=== PATIENT | female | born 1940 | race Caucasian/White ===

== ENCOUNTER 2023-10-15 00:16 | Day surgery (SDC) | payer MEDICARE, SELFPAY ==
[2023-10-03 15:05] VITALS: BMI 20.7
--- NOTE | 2023-10-03 15:48 | PC.NURSE ---
Spoke with _POA-DAUGHTER PAVITHRA__ regarding medication _ELIQUIS__. Pt. verbalizes understanding that the last dose of ELIQUIS_ is to be taken on _10/12/2023___ and the Endoscopist will instruct them when to restart after the procedure.
[2023-10-15 12:38] VITALS: BP 137/41; PULSE 56; RESP 18; TEMP 36.1; O2SAT 98; BMI 20.7
[2023-10-15] MEDS: LACTATED RINGERS 1,000 ML 150 ML IV CONT (12:42)
--- NOTE | 2023-10-15 12:57 | WPDANESEPPF ---
Anes - Initial Pre Proc Eval Procedure: Operation Date: 10/15/23 13:30 Proposed Procedures p Esophagogastroduodenoscopy - Pablo Aguillon MD Date/Time: 10/15/23 12:57 Surgeon: Pablo Aguillon MD Pre Op Diagnosis: dysphagia unspecified Patient Data Age: 83 Gender: F Height: 1.6 m Weight: 53.2 kg Last Vital Signs Temp 97.0 F L 10/15/23 12:38 Pulse 56 L 10/15/23 12:38 Resp 18 10/15/23 12:38 BP 137/41 L 10/15/23 12:38 Pulse Ox 98 10/15/23 12:38 O2 Del Method Room Air 10/15/23 12:38 Allergies Allergy/AdvReac Type Severity Reaction Status Date / Time Sulfa (Sulfonamide Allergy Severe Difficulty Verified 10/15/23 12:34 Antibiotics) Breathing latex Allergy Intermediate Itching Verified 10/15/23 12:34 Penicillins Allergy Unknown Unknown Verified 10/15/23 12:34 Home Medications Medication Instructions Recorded Confirmed Type Centrum Silver Ultra Women's 1 gummy PO DAILY 10/03/23 10/15/23 History alendronate 70 mg tablet 70 mg PO WEEKLY 10/03/23 10/15/23 History apixaban 5 mg tablet (Eliquis) 5 mg PO BID 10/03/23 10/03/23 History calcium carbonate 600 mg-vitamin 1 tablet PO BID 10/03/23 10/15/23 History D3 20 mcg (800 unit) chewable tablet (Caltrate 600 plus D) cyclosporine 0.05 % eye drops in a 1 drp EACH EYE Q12H 10/03/23 10/15/23 History dropperette (Restasis) escitalopram oxalate 5 mg tablet 5 mg PO DAILY 10/03/23 10/15/23 History fluticasone propionate 50 2 spray intranasal DAILY 10/03/23 10/15/23 History mcg/actuation nasal spray,suspension lorazepam 0.5 mg tablet 0.5 mg PO TID PRN Anxiety 10/03/23 10/15/23 History losartan 50 mg-hydrochlorothiazide 1 tablet PO DAILY 10/03/23 10/15/23 History 12.5 mg tablet mecobalamin (vitamin B12) 1,000 1,000 mcg sublingual DAILY 10/03/23 10/15/23 History mcg disintegrating tablet,sublingual metoprolol tartrate 25 mg tablet 25 mg PO DAILY 10/03/23 10/15/23 History ranolazine 500 mg tablet,extended 500 mg PO BID 10/03/23 10/15/23 History release,12 hr rosuvastatin 20 mg tablet 20 mg PO DAILY 10/03/23 10/15/23 History Patient hx anesthesia problems: none Family hx anesthesia problems: none Results Review: All pre-operative results and documents have been reviewed as part of the pre-operative evaluation. [facility] Social History Social History Smoking packs per day: 2 Smoking cigarettes per day: 40.0 Years smoked: 40 Smoking pack-years: 80.00 Smoking status: Former smoker Tobacco type: cigarettes Alcohol intake: current Substance use: never Substance use type: does not use Living arrangements: with family Spiritual care concerns: No Anes - Eval Final PreProcedure Day of Procedure 10/15/23 12:57 Patient weight: normal Heart: regular rate and rhythm Lungs: clear to auscultation Airway: Mallampati scale class II Neurological: alert and oriented Last oral intake: >/= 8 hours ASA classification: III Emergent: no Anesthetic plan: proceed Anesthesia type and monitoring: general GIVS and standard monitoring Results Review: All pre-operative results and documents have been reviewed as part of the pre-operative evaluation. Informed Consent: The patient's anesthetic plan and its attendant risks and benefits were discussed with the patient/family/POA. Questions were solicited and answers provided to the satisfaction of the patient/family/POA.
--- NOTE | 2023-10-15 13:32 | PM.HPGS ---
History of Present Illness History of Present Illness Consent: Risks, benefits, and alternatives have been discussed and questions answered. Patient agrees to proceed with procedure. Chief complaint: dysphagia unspecified Narrative: Vinita Mendoza is a 83 year old female here with 1 month of dysphagia. Review of Systems Review of Systems: All systems reviewed & are unremarkable except as noted in HPI and below PMFSH Past Medical History Medical History (Updated 10/15/23 @ 13:33 by Pablo Aguillon MD) Dysphagia Social History Social History Smoking packs per day: 2 Smoking cigarettes per day: 40.0 Years smoked: 40 Smoking pack-years: 80.00 Smoking status: Former smoker Tobacco type: cigarettes Alcohol intake: current Substance use: never Substance use type: does not use Living arrangements: with family Spiritual care concerns: No Meds Home Medications and Allergies Home Medications Medication Instructions Recorded Confirmed Type Centrum Silver Ultra Women's 1 gummy PO DAILY 10/03/23 10/15/23 History alendronate 70 mg tablet 70 mg PO WEEKLY 10/03/23 10/15/23 History apixaban 5 mg tablet (Eliquis) 5 mg PO BID 10/03/23 10/03/23 History calcium carbonate 600 mg-vitamin 1 tablet PO BID 10/03/23 10/15/23 History D3 20 mcg (800 unit) chewable tablet (Caltrate 600 plus D) cyclosporine 0.05 % eye drops in a 1 drp EACH EYE Q12H 10/03/23 10/15/23 History dropperette (Restasis) escitalopram oxalate 5 mg tablet 5 mg PO DAILY 10/03/23 10/15/23 History fluticasone propionate 50 2 spray intranasal DAILY 10/03/23 10/15/23 History mcg/actuation nasal spray,suspension lorazepam 0.5 mg tablet 0.5 mg PO TID PRN Anxiety 10/03/23 10/15/23 History losartan 50 mg-hydrochlorothiazide 1 tablet PO DAILY 10/03/23 10/15/23 History 12.5 mg tablet mecobalamin (vitamin B12) 1,000 1,000 mcg sublingual DAILY 10/03/23 10/15/23 History mcg disintegrating tablet,sublingual metoprolol tartrate 25 mg tablet 25 mg PO DAILY 10/03/23 10/15/23 History ranolazine 500 mg tablet,extended 500 mg PO BID 10/03/23 10/15/23 History release,12 hr rosuvastatin 20 mg tablet 20 mg PO DAILY 10/03/23 10/15/23 History Allergies Allergy/AdvReac Type Severity Reaction Status Date / Time Sulfa (Sulfonamide Allergy Severe Difficulty Verified 10/15/23 12:34 Antibiotics) Breathing latex Allergy Intermediate Itching Verified 10/15/23 12:34 Penicillins Allergy Unknown Unknown Verified 10/15/23 12:34 Vital Signs Vital Signs - 24 hr 10/15/23 12:38 Temperature 97.0 F L Pulse Rate 56 L Respiratory Rate 18 Blood Pressure 137/41 L Pulse Oximetry 98 Oxygen Delivery Room Air Exam Const: General: comfortable and no acute distress HENMT: Face/Nose/Sinus: Normal nares present Eyes: General: appearance normal, both eyes and all related structures Neck: Neck: no JVD Resp: Auscultation: clear to auscultation bilaterally Cardio: Rate: regular rate Rhythm: regular rhythm GI: Inspection: non-distended GI Palp: Yes Soft to palpation Skin: General skin exam: normal color Neuro: General: gait normal Speech: normal speech Extrem: General: normal to inspection Psych: Mental Status: mental status grossly normal Assessment and Plan Assessment and plan (1) Dysphagia: Code(s): R13.10 - Dysphagia, unspecified Status: Acute Assessment and Plan: egd with bx
[2023-10-15 13:35] VITALS: BP 127/45; PULSE 56; RESP 16; O2SAT 100
[2023-10-15 13:45] VITALS: BP 107/43; PULSE 51; RESP 16; O2SAT 100
[2023-10-15 13:55] VITALS: BP 129/64; PULSE 52; RESP 16; O2SAT 100
== END 2023-10-15 14:19 | disposition home or self-care (01) ==
PROVIDERS: PCP Internal Medicine; Visit Provider Internal Medicine Gastroenterology
PROC: 0DJ08ZZ Inspection of Upper Intestinal Tract, Via Natural or Artificial Opening Endoscopic (ICD-10-PCS; CPT 43235; principal; 2023-10-15 13:30)
DX: K29.50 Unspecified chronic gastritis without bleeding (principal); Z87.891 Personal history of nicotine dependence
CPT/HCPCS: 43239; 88305; 88342; J2001; J2704; J7120